=== PATIENT | male | born 1945 ===

== ENCOUNTER 2025-06-30 09:05 | Outpatient (AMB) | payer MEDICARE, SELFPAY ==
--- OUTSIDE RECORDS SUMMARY | 2025-06-30 09:34 | XMS_ITS | Clinical Summary ---
Author Organization [facility] [address] [facility] [address] Address [address] [place] [address] Phone Care Team Providers Care Public Affairs Officer Name Role Phone Paula Stahl MD Primary Care Provider [phone] Encounters Date Type Department Care Team Description 06/10/2025 Telephone Gastroenterology - [address] [phone] Layton Rossi MD consult appointment 06/04/2025 Telephone Gastroenterology - [address] [phone] Layton Rossi MD from Last 3 Months Social History Tobacco Use Types Packs/Day Years Used Date Smoking Tobacco: Never Assessed Sex and Gender Information Value Date Recorded Sex Assigned at Male 06/10/2025 1:50 PM EDT Legal Sex Male 1:13 AM EST Gender Identity Male 06/10/2025 1:50 PM EDT Sexual Orientation Not on file Plan of Treatment Upcoming Encounters Date Type Department Care Team ([facility] st Contact Info) Description 08/11/2025 8:50 AM EDT Office Visit Gastroenterology - [address] [phone] Anna Méndez PA [address] [phone] Health Maintenance Due Date Last Done Comments DTaP,Tdap,and Td Vaccines (1 - Tdap) 1964 Pneumococcal Vaccine: 50+ Ye ars (1 of 1 - PCV) 02/16/1996 Zoster Vaccines (1 of 2) 02/16/1996 RSV Immunization Adult Patie nts (1 - 1-dose 75+ series) 2021 COVID-19 Vaccine (2023-2 5 season) 2024 Depression Screening 11/13/2024 Cholesterol Screening (Lipid Panel) 06/05/2025 Falls Risk Assessment 06/05/2025 Hepatitis C Screening 06/05/2025 Medicare Annual Wellness Visit 06/05/2025 Social Influencers of Health Screening 06/05/2025 Influenza Vaccine (#1) 2025 HIB Vaccines Aged Out No longer eligi ble based on patient's age to complete this topic HPV Vaccines Aged Out No longer eligi ble based on patient's age to complete this topic Hepatitis A Vaccines Aged Out No long er eligible based on patient's age to complete this topic Hepatitis B Vaccines Aged Out No long er eligible based on patient's age to complete this topic IPV Vaccines Aged Out No longer eligi ble based on patient's age to complete this topic MMR Vaccines Aged Out No longer eligi ble based on patient's age to complete this topic Meningococcal ACWY Vaccine Aged Out N o longer eligible based on patient's age to complete this topic Meningococcal B Vaccine Aged Out No l onger eligible based on patient's age to complete this topic RSV Immunization Patients Un kevin 20 months Aged Out No longer eligible b ased on patient's age to complete this topic Varicella Vaccines Aged Out No longer eligible based on patient's age to complete this topic Insurance MEDICARE BLUE CROSS - [place] MEDICARE ADVANTAGE Care Teams Public Affairs Officer Relationship Specialty Start Date End Date Paula Stahl MD [address] [place] [address] PCP - General Internal Medicine 06/10/25
== END 2025-06-30 10:09 | disposition home or self-care (01) ==
LOC: HO.HMGAL 09:05
PROVIDERS: PCP Internal Medicine; Visit Provider Registered Nurse Emergency
DX: J30.89 Other allergic rhinitis (principal)
CPT/HCPCS: 95117; 95165

== ENCOUNTER 2025-07-28 10:53 | Outpatient (AMB) | payer MEDICARE, SELFPAY ==
--- OUTSIDE RECORDS SUMMARY | 2025-07-28 14:28 | XMS_ITS | Clinical Summary ---
Author Organization [facility] [address] [facility] [address] Address [address] [place] [address] Phone Care Team Providers Care Actuarial Technician Name Role Phone Paula Stahl MD Primary Care Provider [phone] Encounters Date Type Department Care Team Description 06/10/2025 Telephone Gastroenterology - [address] [phone] Layton Rossi MD 06/04/2025 Telephone Gastroenterology - [address] [phone] Layton Rossi MD from Last 3 Months Social History Tobacco Use Types Packs/Day Years Used Date Smoking Tobacco: Never Assessed Sex and Gender Information Value Date Recorded Sex Assigned at Male 06/10/2025 1:50 PM EDT Legal Sex Male 1:13 AM EST Gender Identity Male 06/10/2025 1:50 PM EDT Sexual Orientation Not on file Plan of Treatment Upcoming Encounters Date Type Department Care Team ([facility] st Contact Info) Description 08/11/2025 8:50 AM EDT Office Visit Gastroenterology - [address] [phone] Anna Méndez PA [address] [place] [address] Health Maintenance Due Date Last Done Comments DTaP,Tdap,and Td Vaccines (1 - Tdap) 1964 Pneumococcal Vaccine: 50+ Ye ars (1 of 1 - PCV) 02/16/1996 Zoster Vaccines (1 of 2) 02/16/1996 RSV Immunization Adult Patie nts (1 - 1-dose 75+ series) 2021 Depression Screening 11/13/2024 Cholesterol Screening (Lipid Panel) 06/05/2025 Falls Risk Assessment 06/05/2025 Hepatitis C Screening 06/05/2025 Medicare Annual Wellness Visit 06/05/2025 Social Influencers of Health Screening 06/05/2025 COVID-19 Vaccine ( - 2023-2 5 season) 2025 Influenza Vaccine (#1) 2025 HIB Vaccines Aged [...] age to complete [place] [id number] [place] Care Teams Actuarial Technician Relationship Specialty Start Date End Date Paula Stahl MD [address] [place] [address] PCP - General Internal Medicine 06/10/25
== END 2025-07-28 11:24 | disposition home or self-care (01) ==
LOC: HO.HMGAL 10:53
PROVIDERS: PCP Internal Medicine; Visit Provider Registered Nurse Emergency
DX: J30.89 Other allergic rhinitis (principal)
CPT/HCPCS: 95117; 95165